=== PATIENT | female | born 2000 | race Caucasian/White ===

== ENCOUNTER 2020-10-04 12:03 | Outpatient (CLI) | payer BC ==
[2020-10-04 13:46] LABS: BHCG - Serum Negative (NEGATIVE); Pregs Control Bar Appear? YES (CONTROL BAR)
[2020-10-04 13:48] LABS: Pregs Control Background? CLEAR/WHITE (CLR/WHITE)
--- NOTE | 2020-10-04 14:06 | NM ---
NUCLEAR MEDICINE THYROID ABLATION THERAPY: HISTORY: Malignant neoplasm of thyroid gland. Status post near-total thyroidectomy. PROCEDURE: After discussing the risks, benefits, alternatives and radiation precaution issues with the patient, verbal and written consent was obtained for radioiodine ablation therapy. The patient verbalized understanding and was treated with 100 mCi Iodine 131 orally without complications.
== END 2020-10-04 12:04 | disposition home or self-care (01) ==
LOC: NM 12:03
PROVIDERS: ATTEND Internal Medicine Endocrinology, Diabetes & Metabolism
DX: C73 Malignant neoplasm of thyroid gland (principal)
CPT/HCPCS: 36415; 79005; 84703; A9517